=== PATIENT | female | born 1935 | race Caucasian/White ===

== ENCOUNTER 2018-08-23 19:13 | Inpatient (IN) | payer MEDICARE ==
[2018-08-23] MEDS: Ibuprofen 200 MG TAB PO SCH (22:00)
[2018-08-23] MEDS: Aspirin 81 mg Enteric Coated Tablet PO SCH (22:00)
[2018-08-23] MEDS: Gabapentin 100 MG CAP PO SCH (22:00)
[2018-08-23] MEDS: Senokot S 8.6-50 MG TAB PO SCH (22:01)
[2018-08-23] MEDS: Acetaminophen 500 MG TAB PO SCH (22:02)
[2018-08-24] MEDS: Acetaminophen 500 MG TAB PO SCH ×4 (04:06→20:54)
[2018-08-24] MEDS: traMADol HCl 50 MG TAB PO PRN ×4 (04:08→23:56)
[2018-08-24 05:52] LABS: Band 8 % (5-11); Eosinophils 2 % (0-10); Hemoglobin 8.6 g/dL (12.0-16.0); Lymphocytes 38 % (21-51); MDiff Complete? YES; Mean Corpuscular HGB CONC 30.6 g/dL (32.0-36.0); Mean Corpuscular Hemoglobin 30.7 pg (27.0-31.0); Mean Platelet Volume 5.7 fL (7.4-10.4); Monocytes 8 % (0-10); Neutrophil 44 % (42-75); Platelet Count 395 thou/uL (130-400); Platelet Morphology Comment Appears Adequate; RBC Morphology Normal; Red Blood Cell (RBC) Count 2.81 mill/uL (4.20-5.40); White Blood Cell (WBC) Count 7.1 thou/uL (4.8-10.8)
[2018-08-24] MEDS: Ibuprofen 200 MG TAB PO SCH ×3 (05:58→22:06)
[2018-08-24 07:14] LABS: ALT (SGPT) 8 U/L (8-55); AST (SGOT) 21 U/L (5-34); Albumin 2.7 g/dL (3.4-4.8); Alkaline Phosphatase 139 U/L (40-150); Anion Gap 11 mmol/L (10-20); BUN (Urea Nitrogen) 13 mg/dL (9.8-20.1); Bilirubin, Total 0.4 mg/dL (0.2-1.2); Calc. Creatinine Clearance 40 mL/min (70-130); Calcium 8.5 mg/dL (7.8-10.44); Carbon Dioxide 28 mmol/L (23-31); Chloride 101 mmol/L (98-107); Estimated GFR-MDRD 69; Globulin 1.7 g/dL (2.4-3.5); Glucose 78 mg/dL (83-110); Potassium 4.3 mmol/L (3.5-5.1); Protein, Total 4.4 g/dL (6.0-8.3); Sodium 136 mmol/L (136-145)
--- NOTE | 2018-08-24 07:29 | PRG ---
DATE OF SERVICE: 08/24/2018 SUBJECTIVE: The patient feels well except she is asking for increased tramadol as 50 mg is not adequate and required 100 mg for control of her pain as she receiving at [facility]. She otherwise has no complaints, and is ready for more therapy. Specifically, she denied any headache, dizziness, shortness of breath, agitation, cough, or nausea. OBJECTIVE: LUNGS: Clear. CARDIAC: Regular rhythm. ABDOMEN: Soft and nontender. EXTREMITIES: Left hip is healing well. ASSESSMENT: 1. Resolving left hip hemiarthroplasty after left femoral neck fracture. 2. Stable hypertension. 3. Stable nicotine abuse, only 3 to 4 cigarettes daily with no evidence of cough, shortness of breath. 4. Stable fibromyalgia, controlled on duloxetine and Cymbalta, but with increased pain requirements of up to 100 mg of tramadol every 6 hours for severe pain. Job ID: [id number]
--- NOTE | 2018-08-24 07:36 | HP ---
HISTORY OF PRESENT ILLNESS: The patient is a very pleasant 83-year-old white female, who lives alone in independent living at [facility] and suffered a fall while standing. She was on the floor for 10 hours, called EMS, refused transport, subsequently her brothers came and advised her to go the emergency room because of persistent pain and was found to have a left femoral neck fracture. She underwent a left hemiarthroplasty without complication. She has been doing well postop, ambulating with a walker, but because of her independent living, felt to be unstable to maintain her ADLs alone at home and therefore is transferred to [facility] to continue PT and OT. She has had mild anemia postop, but appears to be stable and has had no episodes of dizziness or near syncope. She has had some pain, but it has been controlled with tramadol. She has had no shortness of breath, cough, or chest pain. PAST MEDICAL HISTORY: Positive for nicotine abuse, dramatically increased over the last several years, only smoking 2-4 cigarettes. She also drinks one alcoholic beverage daily. She has been ambulating with a walker in the [place], but not in her apartment. She has a history of recurrent migraines, fibromyalgia, and some neck pain, which has been treated with epidural steroids. Hypertension with no history of heart disease, cerebrovascular accident. PAST SURGICAL HISTORY: Positive for hysterectomy, appendectomy, and breast implants. MEDICATIONS: At present includes Cymbalta, tramadol, gabapentin, and amlodipine. REVIEW OF SYSTEMS: HEENT: She denies headaches, dizziness, or hoarseness. PULMONARY: She denies cough, sputum production, pneumonia, asthma, or tuberculosis. CARDIOVASCULAR: Denies chest pain, orthopnea, paroxysmal nocturnal dyspnea or edema. GASTROINTESTINAL: Denies nausea, vomiting, diarrhea, constipation, or abdominal pain. GENITOURINARY: Denies dysuria, hematuria, or nocturia. MUSCULOSKELETAL: Has some left hip pain. No other joint pain as her neck pain has been relieved with Cymbalta, gabapentin, and tramadol. NEUROLOGIC: She denies localized numbness, weakness to arms or extremities. PHYSICAL EXAMINATION: GENERAL: The patient is a thin elderly white female, in no acute distress, oriented x3 with only complaints of left hip pain. VITAL SIGNS: Showed her to have blood pressure of 129/60, temperature 97, pulse 99, respirations 18, O2 sats 93% on room air. LUNGS: Clear. No rales or rhonchi. CARDIAC: Showed regular rhythm. No gallops or murmurs. ABDOMEN: Soft and nontender with no masses or organomegaly. SKIN/EXTREMITIES: Display no edema, clubbing, or cyanosis. GASTROINTESTINAL: Denies nausea, vomiting, diarrhea, constipation, or abdominal pain. GENITOURINARY: Denies dysuria, hematuria, or nocturia. MUSCULOSKELETAL: Has only pain in the left hip. NEUROLOGIC: Denies localized numbness or weakness to arms or extremities. PHYSICAL EXAMINATION: VITAL SIGNS: Temperature is 97.2, pulse 99, respirations 18, O2 saturation is 93% on room air, blood pressure 129/60. HEENT: Pupils are equal, round, and reactive to light and accommodation. LUNGS: Clear. NECK: Supple. No nodes or masses. CARDIAC: Showed regular rhythm. No gallops or murmurs. ABDOMEN: Soft and nontender with no masses or organomegaly. SKIN/EXTREMITIES: Shows a healing left lateral hip incision with no erythema, warmth, or drainage. Minimal tenderness. NEUROLOGIC: Shows normal strength and sensation in all extremities. LABORATORY DATA: Show hemoglobin 8.6, hematocrit 28, white count 7100. Sodium previously is 135, potassium 3.6, chloride 103, bicarb 25, BUN 16, and creatinine 0.82. ASSESSMENT: 1. Resolving left femoral neck fracture, status post left hemiarthroplasty, healing well. 2. Fibromyalgia, stable on gabapentin and Cymbalta. 3. Hypertension, controlled to goal on amlodipine. PLAN: Continue PT/OT. Continue to monitor postop anemia. Continue pain relief with tramadol, gabapentin, and Cymbalta. Continue to monitor vital signs and continue amlodipine. Job ID: [id number]
[2018-08-24] MEDS: Multivitamin W/ Minerals 1 TAB PO SCH (09:59)
[2018-08-24] MEDS: Thiamine 100 MG TAB PO SCH (09:59)
[2018-08-24] MEDS: DULoxetine 30 MG CAP PO SCH (09:59)
[2018-08-24] MEDS: Folic Acid 1 MG TAB PO SCH (09:59)
[2018-08-24] MEDS: Aspirin 81 mg Enteric Coated Tablet PO SCH ×2 (09:59→20:52)
[2018-08-24] MEDS: Gabapentin 100 MG CAP PO SCH ×3 (09:59→20:52)
[2018-08-24] MEDS: Amlodipine 10 MG TAB PO SCH (09:59)
[2018-08-24] MEDS: Polyethylene Glycol 3350 17 GM Packet PO SCH (10:00)
[2018-08-24] MEDS: Senokot S 8.6-50 MG TAB PO SCH ×2 (10:00→20:51)
[2018-08-25] MEDS: Acetaminophen 500 MG TAB PO SCH ×4 (04:00→21:37)
[2018-08-25] MEDS: Ibuprofen 200 MG TAB PO SCH ×3 (05:59→23:40)
[2018-08-25] MEDS: Folic Acid 1 MG TAB PO SCH (08:25)
[2018-08-25] MEDS: Aspirin 81 mg Enteric Coated Tablet PO SCH ×2 (08:25→21:38)
[2018-08-25] MEDS: Amlodipine 10 MG TAB PO SCH (08:25)
[2018-08-25] MEDS: DULoxetine 30 MG CAP PO SCH (08:25)
[2018-08-25] MEDS: Polyethylene Glycol 3350 17 GM Packet PO SCH (08:26)
[2018-08-25] MEDS: Gabapentin 100 MG CAP PO SCH ×3 (08:26→21:38)
[2018-08-25] MEDS: Multivitamin W/ Minerals 1 TAB PO SCH (08:26)
[2018-08-25] MEDS: Senokot S 8.6-50 MG TAB PO SCH ×2 (08:26→21:38)
[2018-08-25] MEDS: Thiamine 100 MG TAB PO SCH (08:26)
--- NOTE | 2018-08-25 08:31 | PRG ---
DATE OF SERVICE: 08/25/2018 SUBJECTIVE: Ms. Bautista is a very pleasant and thin 83-year-old white female, who lives at [facility]. Unfortunately, she fell and laid on the floor for approximately 10 hours. She was eventually brought to the emergency room and found to have left femoral neck fracture and underwent left hemiarthroplasty. Postoperatively, she was very weak and because she lives by herself, felt that she was unable to maintain her ADLs at home. She was transferred to [facility] for physical therapy and occupational therapy. The patient states that she is doing well and eating really well, and trying to get her strength up. OBJECTIVE: VITAL SIGNS: Blood pressure this morning 126/65, pulse 95, respirations 18, O2 saturations 92% to 94% on room air, and T-max 98.1. GENERAL: This is a well-developed, well-nourished, very thin, white female, in no apparent distress at this time. HEENT: Normocephalic and nontraumatic cranium. Pupils are equally, round, and reactive. Extraocular movements are intact. Nose and throat are slightly dry. NECK: Supple without masses, nodes, or bruits. CHEST: Clear to auscultation. No rales, rhonchi, wheezes, or cough is noted. HEART: Regular rate and rhythm without murmurs, gallops, or rubs. ABDOMEN: Soft and nontender without organomegaly. Normal bowel sounds are noted. No rebound or guarding is noted. : Deferred. EXTREMITIES: No clubbing, cyanosis, or edema. NEUROLOGIC: The patient is oriented x3. ASSESSMENT: 1. Left femoral neck fractures, status post left hemiarthroplasty. 2. Fibromyalgia. 3. Hypertension. 4. Generalized weakness. PLAN: 1. Continue to monitor the patient's anemia. 2. Pain management with tramadol, gabapentin, and Cymbalta. 3. Continue physical therapy and occupational therapy. 4. Stress ulcer prophylaxis. 5. Decubitus precautions. 6. Expected discharge sometimes next week. Job ID: [id number]
[2018-08-25] MEDS: traMADol HCl 50 MG TAB PO PRN ×2 (11:02→18:36)
[2018-08-25 23:50] VITALS: BMI 18.3
[2018-08-26] MEDS: Acetaminophen 500 MG TAB PO SCH ×4 (03:11→20:56)
[2018-08-26] MEDS: traMADol HCl 50 MG TAB PO PRN ×2 (06:20→11:39)
[2018-08-26] MEDS: Ibuprofen 200 MG TAB PO SCH ×3 (08:15→22:02)
[2018-08-26] MEDS: Aspirin 81 mg Enteric Coated Tablet PO SCH ×2 (08:17→20:59)
[2018-08-26] MEDS: Amlodipine 10 MG TAB PO SCH (08:17)
[2018-08-26] MEDS: DULoxetine 30 MG CAP PO SCH (08:17)
[2018-08-26] MEDS: Senokot S 8.6-50 MG TAB PO SCH ×2 (08:18→20:59)
[2018-08-26] MEDS: Polyethylene Glycol 3350 17 GM Packet PO SCH (08:18)
[2018-08-26] MEDS: Folic Acid 1 MG TAB PO SCH (08:18)
[2018-08-26] MEDS: Gabapentin 100 MG CAP PO SCH ×3 (08:18→20:59)
[2018-08-26] MEDS: Multivitamin W/ Minerals 1 TAB PO SCH (08:18)
[2018-08-26] MEDS: Thiamine 100 MG TAB PO SCH (08:19)
--- NOTE | 2018-08-26 09:14 | PRG ---
DATE OF SERVICE: 08/26/2018 SUBJECTIVE: Ms. Bautista is a very pleasant 83-year-old white female that lives at [facility]. Unfortunately, she fell at her apartment and landed on the floor approximately 10 hours. She presented to the emergency room and was found to have a left femoral neck fracture. She underwent left hemiarthroplasty. Postoperatively, she was weak. Because she lives by herself, it was felt that she was unable to maintain her ADLs by herself. She was transferred to [facility] for PT and OT. The patient states she had a great night and slept well last night, and is eating well. She has no complaints today. OBJECTIVE: VITAL SIGNS: Reveal blood pressure 121/58, pulse 95 to 101, respirations 20, O2 saturation 91% to 92% on room air. T-max 97.8. GENERAL: This is a well-developed, well-nourished, thin white female, in no apparent distress at this time. HEENT: Reveals normocephalic and nontraumatic cranium. Pupils are equally round and reactive. Extraocular movements are intact. Nose and throat are slightly dry, but clear. NECK: Supple without masses, nodes, or bruits. CHEST: Clear to auscultation. No rales, no rhonchi, and no wheezes are heard. HEART: Reveals a regular rate and rhythm. No murmurs, gallops, or rubs. ABDOMEN: Soft, nontender, without organomegaly. Normal bowel sounds are noted in all 4 quadrants. No rebound or guarding is noted. GENITOURINARY: Exam is deferred. EXTREMITIES: Reveal no clubbing, cyanosis, or edema. NEUROLOGIC: The patient is oriented x4. ASSESSMENT: 1. Left femoral neck fracture, status post left hemiarthroplasty. 2. Hypertension. 3. Fibromyalgia. 4. Generalized weakness. PLAN: 1. The patient has her pain controlled with tramadol, gabapentin, and Cymbalta. 2. Continue to monitor the patient for anemia. 3. Continue stress ulcer prophylaxis. 4. Decubitus precautions. 5. Continue physical therapy and occupational therapy. 6. Expect discharge sometime next week. Job ID: [id number] [facility]
[2018-08-27] MEDS: Acetaminophen 500 MG TAB PO SCH ×4 (04:04→20:29)
[2018-08-27] MEDS: traMADol HCl 50 MG TAB PO PRN ×3 (05:04→19:13)
[2018-08-27] MEDS: Ibuprofen 200 MG TAB PO SCH ×3 (06:02→21:55)
[2018-08-27] MEDS: Senokot S 8.6-50 MG TAB PO SCH ×2 (08:19→20:30)
[2018-08-27] MEDS: Gabapentin 100 MG CAP PO SCH ×3 (08:20→20:29)
[2018-08-27] MEDS: Aspirin 81 mg Enteric Coated Tablet PO SCH ×2 (08:20→20:29)
[2018-08-27] MEDS: Thiamine 100 MG TAB PO SCH (08:20)
[2018-08-27] MEDS: Folic Acid 1 MG TAB PO SCH (08:20)
[2018-08-27] MEDS: Amlodipine 10 MG TAB PO SCH (08:20)
[2018-08-27] MEDS: DULoxetine 30 MG CAP PO SCH (08:20)
[2018-08-27] MEDS: Multivitamin W/ Minerals 1 TAB PO SCH (08:20)
[2018-08-27] MEDS: Polyethylene Glycol 3350 17 GM Packet PO SCH (08:21)
[2018-08-28] MEDS: Acetaminophen 500 MG TAB PO SCH ×4 (05:05→20:03)
[2018-08-28] MEDS: traMADol HCl 50 MG TAB PO PRN ×4 (05:08→22:25)
[2018-08-28] MEDS: Ibuprofen 200 MG TAB PO SCH ×3 (05:09→22:26)
[2018-08-28] MEDS: Amlodipine 10 MG TAB PO SCH (08:17)
[2018-08-28] MEDS: Aspirin 81 mg Enteric Coated Tablet PO SCH ×2 (08:17→20:03)
[2018-08-28] MEDS: Thiamine 100 MG TAB PO SCH (08:17)
[2018-08-28] MEDS: Multivitamin W/ Minerals 1 TAB PO SCH (08:17)
[2018-08-28] MEDS: Gabapentin 100 MG CAP PO SCH ×3 (08:17→20:03)
[2018-08-28] MEDS: DULoxetine 30 MG CAP PO SCH (08:17)
[2018-08-28] MEDS: Senokot S 8.6-50 MG TAB PO SCH ×2 (08:17→20:04)
[2018-08-28] MEDS: Folic Acid 1 MG TAB PO SCH (08:18)
[2018-08-28] MEDS: Polyethylene Glycol 3350 17 GM Packet PO SCH (08:18)
[2018-08-29] MEDS: Acetaminophen 500 MG TAB PO SCH ×3 (04:02→15:07)
[2018-08-29] MEDS: traMADol HCl 50 MG TAB PO PRN ×3 (04:12→16:42)
[2018-08-29 07:17] VITALS: BP 112/59; TEMP 97.6
[2018-08-29] MEDS: Ibuprofen 200 MG TAB PO SCH ×2 (08:54→15:07)
[2018-08-29] MEDS: Amlodipine 10 MG TAB PO SCH (08:58)
[2018-08-29] MEDS: Multivitamin W/ Minerals 1 TAB PO SCH (08:59)
[2018-08-29] MEDS: DULoxetine 30 MG CAP PO SCH (08:59)
[2018-08-29] MEDS: Gabapentin 100 MG CAP PO SCH ×2 (08:59→15:07)
[2018-08-29] MEDS: Aspirin 81 mg Enteric Coated Tablet PO SCH (08:59)
[2018-08-29] MEDS: Folic Acid 1 MG TAB PO SCH (08:59)
[2018-08-29] MEDS: Senokot S 8.6-50 MG TAB PO SCH (09:00)
[2018-08-29] MEDS: Thiamine 100 MG TAB PO SCH (09:00)
[2018-08-29] MEDS: Polyethylene Glycol 3350 17 GM Packet PO SCH (09:00)
--- NOTE | 2018-08-30 07:05 | DIS ---
DATE OF ADMISSION: 08/23/2018 DATE OF DISCHARGE: 08/29/2018 FINAL DIAGNOSES: 1. Left hip open reduction and internal fixation, healing well. 2. Hypertension, stable. 3. Fibromyalgia, stable. 4. Nicotine abuse, on nicotine patch. HOSPITAL COURSE: The patient is a very pleasant 83-year-old white female, living independently at [facility], who fell and found to have a left femoral neck fracture after sitting in her chair for several hours refusing transport. She subsequently underwent open reduction and internal fixation and significant amount of ecchymoses, but felt well, who was felt to be unable to be transferred home as she was independent living and therefore was transferred to the skilled unit on August 23. While at the skilled unit, she did very well with therapy, cooperating with therapy very well, progressing rapidly. Her vital signs remained stable at 118/61 on discharge, temperature 97.8, pulse 95, O2 sats 92% on room air. Laboratories, stable on admission with a hemoglobin of 8.6, hematocrit 28, white count 7100, with no evidence of acute bleeding. Sodium is 136, potassium 4.3, chloride 101, bicarb 28, BUN 13, creatinine 0.8, glucose 78. Serum total protein 4.4, albumin 2.7. Therapy did state that she was independent with transfers and would recommend continued PT as an outpatient if patient requested, but was safe to be discharged home. She was walking with a walker and was totally independent, understood hip precautions, was felt to be stable to be discharged home. MEDICATIONS: She therefore will be discharged home on her home medications of amlodipine 10 mg daily, duloxetine 60 mg daily, gabapentin 100 mg three times daily, and tramadol 50 mg every 6 hours. FOLLOWUP: She will follow up with her PCP and orthopedic surgeon. E[place] will be removed prior to discharge. tomorrow and she will not see her surgeon for several weeks. Job ID: [id number]
--- NOTE | 2018-08-30 07:10 | PRG ---
DATE OF SERVICE: 08/28/2018 SUBJECTIVE: The patient feels well, is cooperating well with therapy and asking when she can be discharged home. She is status post open reduction and internal fixation of left hip fracture, and has done well with therapy. OBJECTIVE: VITAL SIGNS: Shows her temperature is 97.8, pulse 95, respirations 18, O2 sats 92% on room air, blood pressure 118/61. LUNGS: Clear. CARDIAC: Showed regular rhythm. ABDOMEN: Soft, nontender. EXTREMITIES: Left hip is healing well. ASSESSMENT: 1. Resolving left hip fracture, status post open reduction and internal fixation. 2. Fibromyalgia, stable. 3. Hypertension, stable. PLAN: Discuss with Physical Therapy tomorrow and if deemed safe, will be discharged home and follow up with PCP. Job ID: [id number]
== END 2018-08-29 17:45 | disposition home health service (06) | DRG 561 ==
LOC: NAV ACUTE 19:13
PROVIDERS: ADMIT Internal Medicine; ATTEND Internal Medicine
DX: S72.002D Fracture of unspecified part of neck of left femur, subsequent encounter for closed fracture with routine healing (principal); M79.7 Fibromyalgia; I10 Essential (primary) hypertension; R53.1 Weakness; F17.210 Nicotine dependence, cigarettes, uncomplicated; Z90.710 Acquired absence of both cervix and uterus; Z90.49 Acquired absence of other specified parts of digestive tract; W19.XXXD Unspecified fall, subsequent encounter
CPT/HCPCS: 36415; 80053; 85025